=== PATIENT | male | born 1945 | race Two or more races ===

== ENCOUNTER 2022-07-02 01:38 | Emergency (ER) | payer MEDICARE ==
[~2022-07-02] VITALS: Ht 175.3 cm; Wt 65.0 kg
[2022-07-02 02:55] VITALS: BP 122/74
[2022-07-02 02:59] LABS: COVID AG,FIA SOURCE NASAL SWAB
[2022-07-02] MEDS ORDERED: OXYMETAZOLINE HCL 0.05% 15 ML NASAL SPRAY NASAL ONE (03:00)
[2022-07-02 03:20] LABS: INFLUENZA TYPE A NEGATIVE FOR TYPE A (NEGATIVE); INFLUENZA TYPE B NEGATIVE FOR TYPE B (NEGATIVE)
== END 2022-07-02 04:19 | disposition home or self-care (01) ==
LOC: EMS 01:46
DX: R09.81 Nasal congestion (principal); Z20.822 Contact with and (suspected) exposure to COVID-19
CPT/HCPCS: 71046; 87804; 99284